=== PATIENT | male | born 1995 | race Two or more races ===

== ENCOUNTER 2017-01-08 10:26 | Emergency (ER) | payer OTHER ==
[~2017-01-08] VITALS: Ht 185.4 cm; Wt 81.6 kg
[2017-01-08 10:30] VITALS: BP 128/62
[2017-01-08] MEDS ORDERED: NKM (10:34)
--- NOTE | 2017-01-08 11:05 | Emergency Room Report ---
History of Present Illness General Chief Complaint: Laceration Source: Patient Present Illness HPI 21YOM with laceration to left lower lip s/p hitting it accidentally with frame. No LOC. No other injury. Tetanus up to date No active bleeding Allergies: Coded Allergies: No Known Allergies (Unverified , 01/08/17) Patient History Past Medical History: none Past Surgical History: none Pertinent Family History: none Social History: Denies: alcohol use, drug use, smoking Immunizations: UTD Reviewed Nursing Documentation: PMH: Agreed, PSxH: Agreed Nursing Documentation-PMH Past Medical History: No Stated History Review of Systems All Other Systems: negative except mentioned in HPI Physical Exam Vital Signs Date Time Temp Pulse Resp B/P Pulse Ox O2 Delivery O2 Flow Rate FiO2 01/08/17 10:30 98.1 67 16 128/62 96 Room Air Sp02 EP Interpretation: reviewed, normal General Appearance: normal inspection, well appearing, no apparent distress, alert Head: normocephalic, other - Left lower lip. 0.5cm lac crosses aleisha border. Well approximated, clean, no FB Eyes: bilateral eye EOMI, bilateral eye PERRL ENT: normal ENT inspection, hearing grossly normal, normal voice Neck: normal inspection, full range of motion, supple, no bony tend Respiratory: normal inspection, lungs clear, normal breath sounds, no respiratory distress, no retraction, no wheezing Cardiovascular #1: regular rate, rhythm, no edema Gastrointestinal: normal inspection, normal bowel sounds, non tender, soft, no guarding, no hernia Genitourinary: no CVA tenderness Musculoskeletal: normal inspection, back normal, normal range of motion, Dennis' s Sign negative Neurologic: normal inspection, alert, oriented x3, responsive, duralumin mechanic III-XII nml as tested, speech normal Psychiatric: normal inspection, judgement/insight normal, mood/affect normal Skin: normal inspection, normal color, no rash Lymphatic: normal inspection Procedures Laceration/Wound Repair Laceration/Wound Repair : Consent: Verbal Wound Location: face Wound's Depth, Shape: superficial Wound Explored: clean Betadine Prep?: Yes Wound Debrided: minimal Wound Repaired With: Dermabond Layer Closure?: No Sterile Dressing Applied?: No Splint Applied?: No Sling Applied?: No Patient Tolerated: Well Complications: None Medical Decision Making Diagnostic Impression: Primary Impression: Laceration ER Course Lip lac s/p dermabond given very superficial is not [id number] Teeth intact Advised to keep clean/dry PMD followup as needed Last Vital Signs Date Time Temp Pulse Resp B/P Pulse Ox O2 Delivery O2 Flow Rate FiO2 01/08/17 10:30 98.1 16 128/62 96 Room Air 01/08/17 10:30 67 Status: improved Disposition: HOME, SELF-CARE Condition: Improved Referrals: NOT CHOSEN IPA/MD,REFERRING (PCP) Patient Instructions: Facial Laceration Additional Instructions: - Keep area clean/dry for 36-48 hours before getting wet - Glue will fall out when wound heals ELLIS RODRIGUEZ M.D. Jan 08, 2017 11:05
[2017-01-08 11:16] VITALS: BP 118/75
== END 2017-01-08 11:18 | disposition home or self-care (01) ==
LOC: EMR 10:55
DX: S01.511A Laceration without foreign body of lip, initial encounter (principal); W22.8XXA Striking against or struck by other objects, initial encounter; Y93.9 Activity, unspecified; Y92.9 Unspecified place or not applicable